=== PATIENT | male | born 1955 | race Caucasian/White ===

== ENCOUNTER 2017-03-30 07:43 | Day surgery (SDC) | payer BC ==
[2017-03-30 10:27] VITALS: BP 174/96
== END 2017-03-30 10:05 | disposition home or self-care (01) ==
LOC: SDC 07:43
PROVIDERS: Ophthalmology
PROC: 08RK3JZ Replacement of Left Lens with Synthetic Substitute, Percutaneous Approach (ICD-10-PCS; principal; 2017-03-30 09:30)
DX: H25.9 Unspecified age-related cataract (principal); H53.8 Other visual disturbances
CPT/HCPCS: V2632